=== PATIENT | female | born 1930 | race Caucasian/White ===

== ENCOUNTER 2019-08-10 10:31 | Outpatient (CLI) | payer MEDICARE ==
--- NOTE | 2019-08-10 12:28 | MRI ---
MRI LEFT SHOULDER: DATE: 08/10/2019. PROVIDED CLINICAL HISTORY: Left shoulder pain. FINDINGS: There is full-thickness, full-width retracted tearing of the supraspinatus and infraspinatus tendons with retraction to the level of the glenohumeral joint. There is full-thickness partial-width tearin g involving the majority of the subscapularis tendon commencing cranially and with a few caudal fiber s probably remaining intact. The long head biceps tendon is disrupted with stump of the long head biceps tendon at the posterior-s uperior aspect of the glenohumeral joint. There is a moderate glenohumeral joint effusion. There is extensive full-thickness articular cartila ge loss involving the glenoid and adjacent humeral head. 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 No focal concerning regional marrow or muscular signal abnormality is evident. There is supraspinatu s and infraspinatus muscular volume loss with fatty infiltration. IMPRESSION: 1. Massive rotator cuff tear as described. 2. Disruption of the long head biceps tendon as described. 3. Glenohumeral articular chondrosis and moderate glenohumeral joint effusion. 4. Acromioclavicular joint osteoarthrosis. POS: OFF
== END 2019-08-10 10:32 | disposition home or self-care (01) ==
LOC: BICMRI 10:31
PROVIDERS: ATTEND Family Medicine
DX: M75.102 Unspecified rotator cuff tear or rupture of left shoulder, not specified as traumatic (principal); M19.012 Primary osteoarthritis, left shoulder; M25.412 Effusion, left shoulder; S43.402A Unspecified sprain of left shoulder joint, initial encounter; M24.112 Other articular cartilage disorders, left shoulder

== ENCOUNTER 2019-12-19 12:08 | Emergency (ER) | payer MEDICARE | END 2019-12-19 13:15 | disposition home or self-care (01) | LOC: ERS 12:08 | DX: J06.9 Acute upper respiratory infection, unspecified (principal); E03.9 Hypothyroidism, unspecified; E78.5 Hyperlipidemia, unspecified; E78.00 Pure hypercholesterolemia, unspecified; I10 Essential (primary) hypertension | CPT/HCPCS: 99283 ==

== ENCOUNTER 2020-04-04 12:42 | Outpatient (CLI) | payer MEDICARE ==
--- NOTE | 2020-04-04 18:25 | MRI ---
MRI OF THE BRAIN WITHOUT CONTRAST: 04/04/20 HISTORY: Dizziness, lightheadedness, generalized weakness. COMPARISON: Comparison made to 01/20/15. FINDINGS: No restricted diffusion is seen. There are multiple foci of T2 prolongation in the periventricular wh ite matter consistent with chronic small vessel ischemic disease. No evidence of infarct, hemorrhage, midline shift or abnormal extra-axial fluid collections are noted. 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 IMPRESSION: 1. No evidence of acute intracranial process. 2. 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 This should be evaluated with a dedicated non cont rast CT scan of the face to evaluate bony structures followed by a contrast enhanced MRI if needed. POS: MARIA A
--- NOTE | 2020-04-04 18:35 | ULT ---
BILATERAL CAROTID DUPLEX ULTRASOUND: 04/04/20 HISTORY: Lightheadedness. TECHNIQUE: Valdes scale ultrasound with color flow and spectral Doppler imaging of the extracranial carotid artery systems is performed bilaterally. FINDINGS: There is plaque formation on both sides. The peak systolic velocity in the right ICA measures 68 cm/s with an end diastolic velocity of 10 cm/ s and systolic ratio of 0.62. The peak systolic velocity in the left ICA measures 63 cm/s with an end diastolic velocity of 20 cm/s and systolic ratio of 0.75. Flow in both vertebral arteries remains antegrade. IMPRESSION: No evidence of hemodynamically significant stenosis. POS: [facility]
== END 2020-04-04 12:43 | disposition home or self-care (01) ==
LOC: MRI 12:42
PROVIDERS: ATTEND Student in an Organized Health Care Education/Training Program
DX: R42 Dizziness and giddiness (principal); R93.89 Abnormal findings on diagnostic imaging of other specified body structures
CPT/HCPCS: 70551; 93880